=== PATIENT | female | born 1965 ===

== ENCOUNTER 2023-03-05 12:40 | Emergency (ER) | payer MEDICAID, SELFPAY ==
[2023-03-05 13:09] VITALS: BP 105/74; PULSE 70; RESP 15; TEMP 35.6; O2SAT 96; BMI 29.3
--- NOTE | 2023-03-05 13:13 | ED.GENADULT ---
HPI - General Adult General Chief complaint: Abdominal Pain Stated complaint: UTI? Source: patient Mode of arrival: ambulatory Limitations: no limitations History of Present Illness HPI narrative: Patient is a 57 year old assigned female at with no reported medical history presenting to the emergency department today with low back pain, nausea, headache, and abdominal bloating. Patient states that over the last 2 days she has had nausea, abdominal bloating, a headache, and back pain. Patient denies any dizziness, lightheadedness, vomiting, fever, chills, blurry vision, double vision, loss of vision, chest pain, difficulty breathing, shortness of breath, night sweats, pain with urination, increased urinary frequency, increased urinary urgency, blood in her urine or stool, syncope or a near syncopal episode, recent trauma or falls, bowel incontinence, bladder incontinence, bowel retention, bladder retention, or any other complaints at this time. Onset (ago): day(s) (2) Severity: mild Severity scale (1-10): 3 Relieving factors: none Exacerbating factors: none Associated symptoms: headaches and nausea/vomiting Related Data Allergies Allergy/AdvReac Type Severity Reaction Status Date / Time No Known Allergies Allergy Verified 03/05/23 13:14 Review of Systems Constitutional: Constitutional: Reports no additional constitutional complaints, Denies chills, Denies fever(s), Reports headache(s) and Denies night sweats Eyes: Eyes: Reports no additional eye complaints, Denies blurry vision, Denies change in vision, Denies diplopia, Denies eye discharge, Denies loss of vision and Denies eye pain ENT: Denies dizziness and Reports headache(s) Cardiovascular: Cardiovascular: Reports no additional cardiovascular complaints, Denies chest pain, Denies lightheadedness, Denies Loss of Consciousness and Denies dyspnea Respiratory: Respiratory: Reports no additional respiratory complaints and Denies dyspnea Gastrointestinal: Gastrointestinal: Reports no additional gastrointestinal complaints, Denies melena, Denies hematochezia, Denies change in bowel habits, Denies change in stool character and Reports nausea Comments: abdominal bloating Genitourinary: Genitourinary: Denies hematuria, Denies urinary frequency, Denies dysuria, Denies urinary incontinence, Denies urinary hesitancy and Denies urinary urgency Musculoskeletal: Musculoskeletal: Reports no additional musculoskeletal complaints, Reports back pain, Denies numbness and Denies tingling Neurologic: Denies dizziness, Reports headache(s), Denies loss of vision, Denies numbness and Denies tingling Psychiatric: Psychiatric: Reports no additional psychiatric complaints Endocrine: Endocrine: Reports no additional endocrine complaints Hematologic/Lymphatic: Hematologic/Lymphatic: Reports no additional hematologic/lymphatic complaints Allergic/Immunologic: Allergic/Immunologic: Reports no additional allergic/immunologic complaints PMFSH Past Medical History Attestation statement: The following information was validated with the patient. Source: old records reviewed and nursing notes reviewed Onset Date is defined in the Problem List Problems that require an onset date and time if occurred within 24 hrs of arrival to the ED Aortic Dissection and Rupture; Neurologic impairment; Cardiopulmonary Arrest; Endotracheal Intubation; Insertion or Replacement of Mechanical Circulatory Assist Device Social History Social History Advance Directives: No Advance Directives Information Provided: No Physical Exam ED Vital Signs: BMI result Body Mass Index 29.3 Const General: cooperative, no acute distress, alert and awake Nutritional Appearance: well nourished Orientation/consciousness: patient oriented x3 Limitations: no limitations HENMT Head: Yes normal to inspection and Yes atraumatic Ears: hearing grossly normal bilaterally and external ears normal General nose exam: Normal external nose present, no nasal discharge noted and no epistaxis Face and sinus: Yes normal facial exam, No abrasion and No laceration Mouth: Normal oral and palatal mucosa present, no drooling and no muffled voice Eyes General: appearance normal, both eyes and all related structures Periorbital: periorbital findings normal Eyelids: Yes eyelids normal Conjunctivae: conjunctivae normal Pupils: Equal, round and reactive pupils present EOM: EOMs intact bilaterally Neck Neck: Yes normal visual inspection, Yes full ROM and Yes no lymphadenopathy Chest Chest palpation & inspection: normal inspection of the chest Resp Effort & Inspection: normal respiratory effort and able to speak in complete sentences GI Inspection: Yes normal to inspection Neuro General: patient oriented x3 and moves all extremities Cranial nerves: Yes Equal, round and reactive pupils present Cognition (Neuro): normal cognition Motor exam (neuro): 5/5 motor strength present throughout Sensory Exam: Normal double simultaneous stimulation for sensation Coordination: [id number] test normal Extrem General: Yes normal to inspection, Yes full ROM and Yes capillary refill normal Psych Appearance: grossly normal Mental Status: mental status grossly normal Affect: normal affect Attitude: cooperative Thought process: Normal thought process present Thought content: Normal thought content present Insight: Good insight present (Psych) Course Course Course Narrative: RME performed by Temi Lomeli PA-C. Patient is a 57 year old assigned female at presenting to the emergency department with low back pain and a headache. Detailed physical exam and review of systems are deferred to the consultant in ergonomics and safety. Labs and swabs ordered. Patient placed back in the waiting room pending room availability and results. Medical Decision Making Medical Decision Making [facility] Narrative: Patient is a 57 year old assigned female at with no reported medical history presenting to the emergency department today with low back pain, abdominal bloating, headache, and nausea. Patient's limited physical exam performed in triage was unremarkable. Patient's blood work showed a mildly elevated BUN but were otherwise grossly normal. Patient's urine showed a possible urinary tract infection. Patient left the department without completing treatment. Patient left the department before myself or any of the other emergency department clinicians could review or explain physical exam findings, test results, need or lack there of for additional testing, treatment options, or a treatment plan. Differential Diagnosis Differential Diagnoses: The differential diagnosis associated with the presentation includes UTI Viral illness Admission/Observation Consideration of admission/observation: Escalation of care including admission/observation considered Patient would have been admitted to the hospital had her work up had any findings where hospital admission was appropriate, her clinical presentation warranted hospital admission, and she hadn't left the department. Lab Data [facility] Lab Attestation statement: I reviewed the patient's lab results. My interpretation of these results are in the [facility] Rationale portion of this note. 03/05/23 13:57 03/05/23 13:57 Labs: Lab Results 03/05/23 Range/Units 13:57 WBC 9.1 (4.8-10.8) X10*3/uL RBC 3.76 L (4.20-5.50) X10*6/uL Hgb 11.9 L (12.0-16.0) g/dl Hct 36.2 L (37.0-47.0) % MCV 96.3 (80.0-98.0) fL MCH 31.6 (27.0-33.0) pg MCHC 32.9 (31.0-35.0) g/dl RDW 13.4 (11.0-16.0) % Plt Count 334 (160-400) X10*3/uL MPV 9.6 (9.4-12.3) fL Immature Gran % (Auto) 0.3 (0.0-0.4) % Neut % (Auto) 83.9 H (45-73) % Lymph % (Auto) 8.8 L (20-40) % Aiken % (Auto) 4.5 (2-11) % Eos % (Auto) 2.2 (0-4) % Baso % (Auto) 0.3 (0-2) % Lymph # (Auto) 0.8 L (1.2-4.9) X10*3/uL Aiken # (Auto) 0.4 (0.1-1.2) X10*3/uL Eos # (Auto) 0.2 (0.0-0.4) X10*3/uL Baso # (Auto) 0.0 (0.0-0.2) X10*3/uL Abs Immat Gran (auto) 0.03 (0.00-0.03) X10*3/uL Absolute Neuts (auto) 7.7 (2.0-8.3) x10*3/uL Absolute Nucleated RBC 0.000 (0.0-0.012) X10*3/uL Nucleated RBC % (auto) 0.0 (0.0-0.2) /100WBC Sodium 137 (135-145) mmol/L Potassium 4.2 (3.3-5.1) mmol/L Chloride 106 (96-108) mmol/L Carbon Dioxide 21 L (22-29) mmol/L Anion Gap 14 (12-20) BUN 21 H (9-16) mg/dL Creatinine 0.71 (0.5-1.4) mg/dL Estim Creat Clear Calc 90.1 Estimated GFR > 60 Random Glucose 92 (60-115) mg/dL Calcium 9.3 (8.4-10.2) mg/dL Magnesium 1.9 (1.6-2.6) mg/dL Total Bilirubin 0.3 (0.0-1.0) mg/dL AST 281 H (5-31) U/L ALT 370 H (0-31) U/L Alkaline Phosphatase 161 H (39-117) U/L Total Protein 7.5 (6.5-8.0) g/dL Albumin 4.0 (3.5-5.0) g/dL Urine Color Dark Yellow Urine Appearance Clear Urine pH 5.0 (5.0-9.0) Ur Specific Wharton 1.025 (1.005-1.025) Urine Protein Negative (Neg-Trace) mg/dL Urine Glucose (UA) Negative (Negative) mg/dL Urine Ketones Negative (Negative) mg/dL Urine Blood Negative (Negative) Urine Nitrite Negative (Negative) Ur Leukocyte Esterase Small (1+) H (Negative) Urine RBC 0-2 (0-2) /HPF Urine WBC 11-20 H (0-5) /HPF Ur Squamous Epith Cells 11-20 (0-2) /HPF Urine Bacteria 1+ (None Seen) Hyaline Casts 3-5 (0-2) /LPF Influenza Type A (PCR) NEGATIVE (Negative) Influenza Type B (PCR) NEGATIVE (Negative) RSV RNA Qual (PCR) NEGATIVE (Negative) SARS-CoV-2 RNA (RT-PCR) NEGATIVE (Negative) Discharge Plan Discharge Clinical Impression: Abdominal bloating, Back pain Patient Disposition: Left W/O Completing Treatment Discharge Date/Time: 03/05/23 23:55
--- OUTSIDE RECORDS SUMMARY | 2023-03-05 23:27 | XMS_ITS | Continuity of Care Document ---
Author Name Unknown Organization [facility] ter Address [address] [place] [address]- Care Team Providers Care Glass Production Machine Operator Name Role Phone Jerrell Terrazas Primary Care Physician [phone] Encounter [facility] [place] Date(s): 01/08/20 - 03/13/[address] [address] Attending Physician: Jerrell Terrazas Admitting Physician: Jerrell Terrazas Referring Physician: Jerrell Terrazas Allergies, Adverse Reactions, Alerts Substance Reaction Severity Status NKA Active Medications fluconazole 150 mg oral tablet 1 tablet = 150 mg, By Mouth, Once, for symptoms of yeast infection, # 1 tablet, 0 Refills, Soft Stop, 12/04/19 10:25:00 EDT, Tablet, [facility] #[id number], 165.1, cm, 12/04/19 10:06:00 EDT, Height Start Date: 12/04/19 Status: Ordered
--- OUTSIDE RECORDS SUMMARY | 2023-03-05 23:27 | XMS_ITS | Continuity of Care Document ---
Author Name Unknown Organization [facility] ter Address [address] [place] [address]- Care Team Providers Care Substitute School Nurse Name Role Phone Jerrell Terrazas Primary Care Physician [phone] Encounter [facility] [place] Date(s): 08/17/20 - 11/04/[address] [id number] Attending Physician: Jerrell Terrazas Admitting Physician: Jerrell Terrazas Referring Physician: Jerrell Terrazas Allergies, Adverse Reactions, Alerts Substance Reaction Severity Status NKA Active Medications fluconazole 150 mg oral tablet 1 tablet = 150 mg, By Mouth, Once, for symptoms of yeast infection, # 1 tablet, 0 Refills, Soft Stop, 12/04/19 10:25:00 EDT, Tablet, [facility] #[id number], 165.1, cm, 12/04/19 10:06:00 EDT, Height Start Date: 12/04/19 Status: Ordered
--- OUTSIDE RECORDS SUMMARY | 2023-03-05 23:28 | XMS_ITS | Continuity of Care Document ---
Author Name Unknown Organization [facility] Address [address] [place] [address]- Care Team Providers Care Outside Barrel Lathe Operator Name Role Phone Jerrell Terrazas Primary Care Physician [phone] Encounter [facility] [place] AC[facility] R [id number] Date(s): 12/04/19 - 01/03/20 [facility] [address] [place], [place] [address] Attending Physician: Felisa Rios Admitting Physician: Admtr, Ar8 Referring Physician: Admtr, Ar8 Allergies, Adverse Reactions, Alerts Substance Reaction Severity Status NKA Active Medications fluconazole 150 mg oral tablet 1 tablet = 150 mg, By Mouth, Once, for symptoms of yeast infection, # 1 tablet, 0 Refills, Soft Stop, 12/04/19 10:25:00 EDT, Tablet, [facility] #[id number], 165.1, cm, 12/04/19 10:06:00 EDT, Height Start Date: 12/04/19 Status: Ordered
--- OUTSIDE RECORDS SUMMARY | 2023-03-05 23:28 | XMS_ITS | Continuity of Care Document ---
Author Name Unknown Organization [facility] Address [address] [place] [address]- Care Team Providers Care Retail Business Manager Name Role Phone Jerrell Terrazas Primary Care Physician En[place] [facility] [place] [facility] [place] [id number] Date(s): 04/01/22 - 05/01/22 [facility] [address] [place], [place] [address] Attending Physician: Felisa Rios Admitting Physician: AdmFelisa santiago Referring Physician: AdmtrFelisa Allergies, Adverse Reactions, Alerts No Known Allergies Medications Aerochamber See Instructions, # 1 kit, Maintenance, 1 units, 04/01/22 10:06:00 EST, Supply, 165.1, cm, :21:00 EST, Height Start Date: 04/01/22 Status: Ordered amoxicillin 500 mg oral capsule 1 capsule = 500 mg, By Mouth, 3 times a day, # 21 capsule, 0 Refills, Maintenance, 04/01/22 9:24:00EST, Capsule, Partial fill upon patient request if the prescription is for a schedule II opioid drug. Start Date: 04/01/22 Stop Date: 04/08/22 Status: Ordered Diflucan 150 mg oral tablet 1 tablet = 150 mg, By Mouth, Once, May repeat in 3 days if continued symptoms, # 2 tablet, 0 Refills, Soft Stop, 01/16/21 10:31:00 EST, Tablet, [facility] #[id number], Partial fill upon patient request if the prescription is for a schedule II opi... Start Date: 01/16/21 Status: Ordered ProAir HFA 90 mcg/inh inhalation aerosol with adapter 2, puffs, Inhalation, Every 6 hours, PRN, # 18 Gm, Refills 0, Tot. Refills 0, Maintenance, 04/01/2309:05:00 EST, Route to Pharmacy Electronically, NCPDP_ID- [id number][id number], 165.1, cm, 04/01/22 9:21:00 EST, Height Start Date: 04/01/22 Status: Ordered Patient Care team information Care Team Personnel Name: Jerrell Terrazas Position: S Associate Professional Member Role: PCP Address: Address: [address] [place] [address]- Care Team Related Persons Name: OSVALDO DAVIDSON Address: home [address] [place] [address] Name: LITA DAVIDSON Name: CHRISTIE DAVIDSON Address: home [address] [place] [address] Name: LEWIS COX Address: [place] [address]
--- OUTSIDE RECORDS SUMMARY | 2023-03-05 23:28 | XMS_ITS | Continuity of Care Document ---
Author Name Unknown Organization [facility] Address [address] [place] [address]- Care Team Providers Care Modeling Instructor Name Role Phone Jerrell Terrazas Primary Care Physician [phone] [facility] [place] Date(s): 12/04/19 - 12/11/19 [facility] [address] [place] [address]- [facility] Attending Physician: Ari Alejandro MD Referring Physician: Jerrell Terrazas Allergies, Adverse Reactions, Alerts Substance Reaction Severity Status NKA Active Medications fluconazole 150 mg oral tablet 1 tablet = 150 mg, By Mouth, Once, for symptoms of yeast infection, # 1 tablet, 0 Refills, Soft Stop, 12/04/19 10:25:00 EDT, Tablet, [facility] #[id number], 165.1, cm, 12/04/19 10:06:00 EDT, Height Start Date: 12/04/19 Status: Ordered Vital Signs Most recent to oldest [Reference Range]: 1 Height 165.10 cm (12/04/19 10:06 AM) Oxygen Saturation [94-100 %] 98 % (12/04/19 10:06 AM) Pulse Rate [55-90 bpm] 61 bpm (12/04/19 10:06 AM) Blood Pressure [90-138/55-84 mm Hg] 142/ 91mm Hg *H* (12/04/19 10:06 AM) Respiratory Rate [16-30 br/min] 23 br/mi n (12/04/19 10:06 AM) Temperature [96.8-100.4 DegF] 96.5 DegF *L* (12/04/19 10:06 AM) Mode of Delivery (Oxygen) Room air (12/04/19 10:06 AM) Blood pressure sites Arm, left (10/8/20 10:06 AM) Temperature Route Temporal (12/04/19 10:06 AM)
--- OUTSIDE RECORDS SUMMARY | 2023-03-05 23:28 | XMS_ITS | Continuity of Care Document ---
Author Name Unknown Organization [facility] Address [address] [place] [address]- Care Team Providers Care Beverage Server Name Role Phone Jerrell Terrazas Primary Care Physician [phone] Encounter [facility] [place] Date(s): 01/16/21 - 01/23/21 [facility] [address] [place], [place] [address] Attending Physician: Alethea Grier MD Referring Physician: Jerrell Terrazas Allergies, Adverse Reactions, Alerts Substance Reaction Severity Status NKA Active Medications Diflucan 150 mg oral tablet 1 tablet = 150 mg, By Mouth, Once, May repeat in 3 days if continued symptoms, # 2 tablet, 0 Refills, Soft Stop, 01/16/21 10:31:00 EST, Tablet, [facility] #[id number], Partial fill upon patient request if the prescription is for a schedule II opi... Start Date: 01/16/21 Status: Ordered mupirocin 2% topical ointment 1 application, Topically, 3 times a day, for 10 days, # 22 Gm, 0 Refills, Acute 01/26/21 10:31:00 EST, 01/16/21 10:31:00 EST, Ointment, [facility] #[id number], Partial fill upon patient request if the prescription is for a schedule II opioid drug... Start Date: 01/16/21 Stop Date: 01/26/21 Status: Ordered Vital Signs Most recent to oldest [Reference Range]: 1 Height 165.10 cm (01/16/21 10:14 AM) Oxygen Saturation [94-100 %] 100 % (01/16/21 10:14 AM) Pulse Rate [55-90 bpm] 78 bpm (01/16/21 10:14 AM) Blood Pressure [90-138/55-84 mm Hg] 105/ 67mm Hg (01/16/21 10:14 AM) Respiratory Rate [16-30 br/min] 20 br/mi n (01/16/21 10:14 AM) Temperature [96.8-100.4 DegF] 98.7 DegF (01/16/21 10:14 AM) Mode of Delivery (Oxygen) Room air (01/16/21 10:14 AM) Blood pressure sites Arm, right (01/16/21 10:14 AM) Temperature Route Temporal (01/16/21 10:14 AM)
--- OUTSIDE RECORDS SUMMARY | 2023-03-05 23:28 | XMS_ITS | Continuity of Care Document ---
Author Name Unknown Organization [facility] Address [address] [place] [address]- Care Team Providers Care Suspender Cutter Name Role Phone Jerrell Terrazas Primary Care Physician [phone] Encounter [facility] [place] Date(s): 01/16/21 - 02/15/21 [facility] [address] [place], [place] [address] Attending Physician: Felisa Rios Admitting Physician: Felisa Rios Referring Physician: AdmtrFelisa Allergies, Adverse Reactions, Alerts Substance Reaction Severity Status NKA Active Medications Diflucan 150 mg oral tablet 1 tablet = 150 mg, By Mouth, Once, May repeat in 3 days if continued symptoms, # 2 tablet, 0 Refills, Soft Stop, 01/16/21 10:31:00 EST, Tablet, [facility] #[id number], Partial fill upon patient request if the prescription is for a schedule II opi... Start Date: 01/16/21 Status: Ordered
== END 2023-03-05 23:55 | disposition left against medical advice (07) ==
PROVIDERS: Emergency Provider Emergency Medicine; PCP Physician Assistant Medical
DX: M54.50 Low back pain, unspecified (principal); R11.2 Nausea with vomiting, unspecified; R51.9 Headache, unspecified; R14.0 Abdominal distension (gaseous); Z79.899 Other long term (current) drug therapy; Z20.822 Contact with and (suspected) exposure to COVID-19; Z20.828 Contact with and (suspected) exposure to other viral communicable diseases
CPT/HCPCS: 0241U; 80053; 81001; 83735; 85025; 87086; 99282; 99283